=== PATIENT | male | born 1975 | race Hispanic/Latino ===

== ENCOUNTER 2023-12-23 08:59 | Outpatient (CLI) | payer OTHER | END 2023-12-23 09:00 | disposition home or self-care (01) | LOC: CSHMRI 08:59 | PROVIDERS: ATTEND Family Medicine | DX: M47.26 Other spondylosis with radiculopathy, lumbar region (principal); M51.16 Intervertebral disc disorders with radiculopathy, lumbar region | CPT/HCPCS: 72100; 72148 ==